=== PATIENT | female | born 1955 | race Caucasian/White ===

== ENCOUNTER → 2025-04-01 | Outpatient (CLI) | payer MEDICARE, OTHER ==
[~2025-04-01] MED LIST: ATIVAN0.5 MG PO; CALTRATE 600600 MG PO; HYOSCYAMINE0.375 M1 PO; NORCO 325 MG-51 TAB PO
== END | disposition home or self-care (01) ==
LOC: RAD 09:18
PROVIDERS: ATTEND Internal Medicine
DX: J47.9 Bronchiectasis, uncomplicated (principal)